=== PATIENT | male | born 1945 | race Caucasian/White ===

== ENCOUNTER 2020-09-11 13:11 | Outpatient (CLI) | payer MEDICARE, OTHER, SELFPAY ==
--- NOTE | ~2020-09-11 | XR_ITS ---
EXAMINATION: XR hand BI arthritis min 3V DATE: 09/11/2020 13:41 INDICATION: Rheumatoid arthritis with rheumatoid factor at multiple sites. TECHNIQUE: 4 views of right hand and 4 views of left hand on 7 radiographs were obtained. COMPARISON: None. FINDINGS: RIGHT HAND: Bone alignment is normal. No fracture. There is mild osteoarthritis of second-fifth dista l interphalangeal joints and first interphalangeal joint. LEFT HAND: Bone alignment is normal. 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 There is mild osteoarthritis of second-fifth distal interp halangeal joints. IMPRESSION: 1. Polyarticular osteoarthritis. Reviewed, dictated and finalized at location A. [employer]
--- NOTE | ~2020-09-11 | XR_ITS ---
EXAMINATION: XR foot RT standing 2V DATE: 09/11/2020 13:41 INDICATION: Arthritis. TECHNIQUE: 2 views of right foot were obtained. COMPARISON: None. FINDINGS: There is moderate hallux valgus. No fracture. There is mild osteoarthritis of talonavicular joint, first metatarsophalangeal joint, and some of the interphalangeal joints. There is soft tissue swelling overlying the first and fifth metatarsophalangeal joints. IMPRESSION: 1. Polyarticular osteoarthritis. 2. Moderate hallux valgus. Reviewed, dictated and finalized at location A. [employer]
--- NOTE | ~2020-09-11 | XR_ITS ---
EXAMINATION: XR foot LT standing 2V DATE: 09/11/2020 13:41 INDICATION: Rheumatoid arthritis with rheumatoid factor of multiple sites. TECHNIQUE: 2 views of left foot were obtained. COMPARISON: None. FINDINGS: There is moderate hallux valgus. No fracture. There is mild osteoarthritis of talonavicular joint, first and fifth metacarpophalangeal joints and some of the interphalangeal joints. There is s oft tissue swelling overlying the first and fifth metatarsophalangeal joints. IMPRESSION: 1. Moderate hallux valgus. 2. Polyarticular osteoarthritis. Reviewed, dictated and finalized at location A. [employer]
== END 2020-09-11 13:12 | disposition home or self-care (01) ==
PROVIDERS: PCP Family Medicine; Visit Provider Internal Medicine
DX: M05.79 Rheumatoid arthritis with rheumatoid factor of multiple sites without organ or systems involvement (principal); M20.12 Hallux valgus (acquired), left foot; M20.11 Hallux valgus (acquired), right foot
CPT/HCPCS: 73130; 73620